=== PATIENT | male | born 1980 | race Caucasian/White ===

== ENCOUNTER 2017-01-23 14:08 | Emergency (ER) | payer OTHER ==
--- NOTE | 2017-01-23 15:09 | C.PDOC ---
History Of Present Illness 36 y/o male, presents to ED from home, family report memory loss over the last few years. Pt reportedly had an injury in the past, and it is related to this. and has not had outpatient follow up. Pt lives at home with family and sisters. Denies any new complaints, trauma, injury, nausea, vomiting, or other associated symptoms. Time Seen by Provider: 01/23/17 14:28 Chief Complaint (Nursing): Psychiatric Evaluation History Per: Patient, Family History/Exam Limitations: no limitations Current Symptoms Are (Timing): Still Present Suicide/Self Injury Attempted (Context): None Recent travel outside of the [place]: No Past Medical History Reviewed: Historical Data, Nursing Documentation, Vital Signs Vital Signs: Last Vital Signs Temp 98.6 F 01/23/17 17:06 Pulse 62 01/23/17 17:06 Resp 18 01/23/17 17:06 BP 116/72 01/23/17 17:06 Pulse Ox 97 01/23/17 17:06 Family History: States: Unknown Family Hx - Social History Hx Alcohol Use: No Hx Substance Use: No - Immunization History Hx Tetanus Toxoid Vaccination: No Hx Influenza Vaccination: No Hx Pneumococcal Vaccination: No Review Of Systems Except As Marked, All Systems Reviewed And Found Negative. Constitutional: Negative for: Fever, Chills Cardiovascular: Negative for: Chest Pain Respiratory: Negative for: Cough, Shortness of Breath Gastrointestinal: Negative for: Nausea, Vomiting Skin: Negative for: Rash Neurological: Negative for: Headache, Dizziness Physical Exam - Physical Exam Appears: Non-toxic, No Acute Distress Skin: Normal Color, Warm, Dry Head: Atraumatic, Normacephalic Chest: Symmetrical Cardiovascular: Rhythm Regular Respiratory: Normal Breath Sounds, No Rales, No Rhonchi, No Wheezing Gastrointestinal/Abdominal: Soft, No Tenderness Back: Normal Inspection Extremity: Normal ROM, Capillary Refill (< 2 sec.) Neurological/Psych: Oriented x3, Normal Speech, Normal Cognition ED Course And Treatment O2 Sat by Pulse Oximetry: 99 (RA) Pulse Ox Interpretation: Normal Medical Decision Making Medical Decision Making: Plan: CT Head- pt will need outpt f/u with neuro. Disposition - Disposition Referrals: [facility] [Outside] [facility] [Outside] [facility] [Outside] [facility] [Outside] Virgil Urrutia MD [Staff Provider] - Lucio Cobb MD [Staff Provider] - Disposition: HOME/ ROUTINE Disposition Time: 05:00 Condition: STABLE Additional Instructions: you need to see specialist. you may need further workup and imaging. return to er with any worsening symptoms or concerns Instructions: Cognitive Disorders following Traumatic Brain Injury (GEN) Forms: [employer] ([place]) Print Language: GREENLANDIC - Clinical Impression Clinical Impression: Memory loss - Scribe Statement The provider has reviewed the documentation as recorded by the Scribe SM All medical record entries made by the Scribe were at my direction and personally dictated by me. I have reviewed the chart and agree that the record accurately reflects my personal performance of the history, physical exam, medical decision making, and the department course for this patient. I have also personally directed, reviewed, and agree with the discharge instructions and disposition.
--- NOTE | 2017-01-23 16:29 | CT ---
PROCEDURE: CT HEAD WITHOUT CONTRAST. HISTORY: memory loss h/o of tbi COMPARISON: None available. TECHNIQUE: Axial computed tomography images were obtained through the head/brain without intravenous contrast. Radiation dose: Total exam DLP = 855.39 mGy-cm. This CT exam was performed using one or more of the following dose reduction techniques: Automated exposure control, adjustment of the mA and/or kV according to patient size, and/or use of iterative reconstruction technique. FINDINGS: HEMORRHAGE: No intracranial hemorrhage. BRAIN: No mass effect or edema. No atrophy or chronic microvascular ischemic changes.Please note that MRI with diffusion imaging is more sensitive in the detection of acute ischemic event. VENTRICLES: No hydrocephalus. CALVARIUM: Unremarkable. PARANASAL SINUSES: Unremarkable as visualized. No significant inflammatory changes. MASTOID AIR CELLS: Unremarkable as visualized. No inflammatory changes. OTHER FINDINGS: Partial opacification of the left external auditory canal, likely cerumen. IMPRESSION: No acute intracranial pathology identified.
[2017-01-23 17:06] VITALS: BP 116/72; PULSE 62; RESP 18; TEMP 98.6
[2017-01-23 18:40] VITALS: O2SAT 99
== END 2017-01-23 17:05 | disposition home or self-care (01) ==
LOC: C.ER 14:08
DX: R41.3 Other amnesia (principal)